=== PATIENT | female | born 1970 | race Caucasian/White ===

== ENCOUNTER → 2021-01-17 | Outpatient (CLI) | payer OTHER ==
--- NOTE | 2021-01-17 19:09 | Diagnostic Imaging Report ---
INDICATION: Injury to head and syncope, patient on blood thinner. TECHNIQUE: Multiple contiguous axial images were obtained through the brain without the use of intravenous contrast. Auto Exposure Controls were utilized during the CT exam to meet ALARA standards for radiation dose reduction. There is no prior study for comparison. There are no extra-axial fluid collections. No intracranial hemorrhage. No intracranial mass or mass effect. No midline shift. The ventricles are normal in size and position. There are no focal parenchymal abnormalities in the brain. Orbital contents are unremarkable. Visualized portions of the sinuses and mastoid air cells are well aerated. IMPRESSION: Negative noncontrast brain CT. Report given to Felicitas Og APRN, at 7:08 PM 01/17/2021/cb Dictated by: Dictated on workstation # [id number]
== END ==
LOC: RAD 18:25
PROVIDERS: ATTEND Nurse Practitioner Family
DX: S09.90XA Unspecified injury of head, initial encounter (principal); X58.XXXA Exposure to other specified factors, initial encounter
CPT/HCPCS: 70450